=== PATIENT | male | born 1995 | race Caucasian/White ===

== ENCOUNTER 2016-02-23 20:57 | Emergency (ER) | payer MEDICAID, OTHER ==
[2016-02-23] MEDS ORDERED: IOPAMIDOL 300 (61%) 150 ML VIAL IV ONE (20:58)
[2016-02-23 21:22] LABS: SPECIFIC GRAVITY 1.015 (1.001-1.030); URINE BILIRUBIN NEGATIVE (NEGATIVE); URINE BLOOD NEGATIVE (NEGATIVE); URINE GLUCOSE (UA) NEGATIVE (NEGATIVE); URINE LEUKOCYTE ESTERASE NEGATIVE (NEGATIVE); URINE NITRITE NEGATIVE (NEGATIVE); URINE PROTEIN NEGATIVE (NEGATIVE); URINE UROBILINOGEN NORMAL (0-1 mg/dl)
[2016-02-23 21:56] LABS: URINE APPEARANCE CLEAR; URINE COLOR YELLOW
[2016-02-23 22:00] LABS: AMPHETAMINES/METHAMPHETAMINES NEGATIVE (NEGATIVE); COCAINE NEGATIVE (NEGATIVE); MARIJUANA NEGATIVE (NEGATIVE); METHADONE NEGATIVE (NEGATIVE); OPIATES NEGATIVE (NEGATIVE); TRICYCLIC ANTIDEPRESSANTS NEGATIVE (NEGATIVE)
[2016-02-23] MEDS ORDERED: MAALOX/LIDO2%VISC/SIMETHICONE 40 ML BOT ONE (23:02)
[2016-02-23] MEDS ORDERED: ONDANSETRON 4 MG/2ML 2 ML VIAL ONE (23:50)
[2016-02-23] MEDS ORDERED: SODIUM CHLORIDE 0.9% 1,000 ML ONE (23:50)
[2016-02-23] MEDS ORDERED: MORPHINE SULFATE 4 MG/ML SYRINGE ONE (23:50)
[2016-02-24 00:03] LABS: ABSOLUTE NEUTROPHIL COUNT 3.3 K/mm3 (1.8-7.7); BASO # 0.1 K/mm3 (0.0-0.2); BASO % 0.9 % (0.2-1.0); EOS # 0.3 (0.0-0.5); EOS % 3.9 % (0.9-2.9); HEMATOCRIT 47.6 % (32.0-52.0); HEMOGLOBIN 16.6 gm/l (14.0-18.0); IMM NEUT% 0.4 % (0-1); LYMPH # 3.4 (1.0-4.8); LYMPH % 42.9 % (15-45); MEAN CELL VOLUME 91.9 fl (80.0-94.0); MEAN CORPUSCULAR HGB CONC 34.9 g/dl (33.0-37.0); MEAN PLATELET VOLUME 11.5 fl (7.4-10.4); MONO # 0.8 (0.0-0.8); MONO % 10.6 % (4-12); NEUT % 41.3 % (43-75); PLATELET COUNT 236 K/mm3 (130-400)
[2016-02-24 00:17] LABS: ALB/GLOB RATIO 1.4 (>1.0); ALBUMIN 4.4 gm/dL (3.5-5.7); CALCIUM 9.5 mg/dL (8.6-10.3)
[2016-02-24] MEDS ORDERED: ONDANSETRON 4 MG/2ML 2 ML VIAL ONE (02:28)
[2016-02-24] MEDS ORDERED: HYDROMORPHONE HCL 0.5 MG/0.5 ML SYRINGE ONE (02:28)
--- NOTE | 2016-02-24 08:41 | CT ---
EXAMINATION: Contrast enhanced CT scan of the abdomen and pelvis. CLINICAL INDICATION: Right upper quadrant pain for 8 hours COMPARISON: Gallbladder ultrasound dated 02/24/2016. TECHNIQUE: Oral contrast: None Following uneventful administration of 125 mL of Isovue 300, intravenously axial images were acquired from just above the domes of the diaphragm to the iliac crest. A CT scan of the pelvis was also obtained from the iliac crest to the initial tuberosities. Stacked axial, sagittal, and coronal images were reviewed. Findings: Abdomen CT: (Contrast-enhanced): The lung bases are clear and are without mass or pleural effusion. The liver is unremarkable. The gallbladder is within normal limits. There is no evidence of biliary obstruction. The spleen size and attenuation are within normal limits. The pancreas is normal in size and contours. No inflammatory stranding is identified. The pancreatic duct is unremarkable. The adrenals are unremarkable. The kidneys are without mass or hydronephrosis. No nephrolithiasis is identified. The abdominal aorta unremarkable. There is no retroperitoneal adenopathy identified. The stomach is unremarkable. The visualized segments of small and large bowel are within normal limits. The osseous structures exhibit no displaced fracture. No lytic or blastic lesions are identified. Pelvic CT: (Contrast -enhanced): The distal ureters and bladder are unremarkable. The prostate is normal in size. There are prominent mesenteric lymph nodes. No disseminated adenopathy is identified. No iliac chain adenopathy is seen. The distal abdominal aorta and iliac vessels are within normal limits. The visualized segments of small and large bowel are within normal limits. The appendix is unremarkable. No displaced fractures are identified. There are no gross osteolytic or blastic lesions. The overlying soft tissues are unremarkable. IMPRESSION: 1. No evidence of acute inflammatory or obstructive process involving the abdomen and pelvis. 2. Findings which may reflect mesenteric adenitis. Findings were communicated by [facility] to the emergency department at: 2:59 AM 02/24/2016
--- NOTE | 2016-02-24 08:58 | US ---
EXAMINATION: Limited gallbladder ultrasound examination was performed. CLINICAL INDICATION: Right upper quadrant pain. COMPARISON: None FINDINGS: Gallbladder: 5.8 x 2.2 Cholelithiasis:None Gallbladder wall thickness: 2.3 millimeters. Pericholecystic fluid: Absent Common bile duct: Not dilated and measures 3 millimeters. Sonographic Whitley's sign: None elicited IMPRESSION: Normal gallbladder ultrasound. Findings were communicated by [facility] to the emergency department at: 1:11 AM 02/24/2016
== END 2016-02-24 03:49 | disposition home or self-care (01) ==
LOC: ED 20:57
DX: K52.9 Noninfective gastroenteritis and colitis, unspecified (principal); R11.2 Nausea with vomiting, unspecified
CPT/HCPCS: 83690; 85025; 80305; 80053; 81003; 74177; 76705; 96375 ×2; 96376; 99284 ×2; 96374; 96361 ×2; A9270; J2270; J2405 ×2; J7030; Q9967; J1170